=== PATIENT | female | born 1965 | race Caucasian/White ===

== ENCOUNTER 2020-05-25 23:47 | Emergency (ER) | payer OTHER ==
[2020-05-26 00:20] VITALS: BP 137/82; PULSE 85; TEMP 98.3; BMI 22.4
[2020-05-26] MEDS ORDERED: METHOCARBAMOL 500 MG TABLET PO ONE (00:57)
[2020-05-26] MEDS ORDERED: LIDOCAINE 5% TOPICAL PATCH TP ONE (00:57)
[2020-05-26] MEDS ORDERED: METHOCARBAMOL 500 MG TABLET ONE (01:03)
[2020-05-26] MEDS ORDERED: LIDOCAINE 5% TOPICAL PATCH ONE (01:03)
[2020-05-26] MEDS ORDERED: ACETAMINOPHEN 500 MG TABLET (FP) PO ONE (02:01)
[2020-05-26] MEDS ORDERED: LIDOCAINE PATCH REMOVAL MC SCH (22:00)
== END 2020-05-26 03:20 | disposition home or self-care (01) ==
LOC: JER 23:47
DX: S82.832A Other fracture of upper and lower end of left fibula, initial encounter for closed fracture (principal)
CPT/HCPCS: 73610-TC-LT-FY; 99284-25

== ENCOUNTER 2021-06-16 12:27 | Emergency (ER) | payer OTHER ==
[2021-06-16 12:49] VITALS: BP 148/66; PULSE 66; TEMP 97.8; BMI 29.9
== END 2021-06-16 14:17 | disposition home or self-care (01) ==
LOC: JER 12:27
DX: M79.652 Pain in left thigh (principal)
CPT/HCPCS: 93971-LT; 99284-25